=== PATIENT | female | born 1970 | race Two or more races ===

== ENCOUNTER 2016-04-20 09:26 | Emergency (ER) | payer OTHER ==
[2016-04-20 09:42] VITALS: BP 104/77
== END 2016-04-20 10:12 | disposition home or self-care (01) ==
LOC: ER 09:31
DX: J02.9 Acute pharyngitis, unspecified (principal)

== ENCOUNTER 2017-01-25 13:13 | Emergency (ER) | payer OTHER ==
[~2017-01-25] VITALS: Ht 139.7 cm; Wt 40.8 kg
[2017-01-25 14:58] VITALS: BP 103/73
[2017-01-25] MEDS ORDERED: TETANUS-DIPTH-ACEL PERTUSSIS 0.5ML SYRG IM ONE (15:15)
== END 2017-01-25 15:22 | disposition home or self-care (01) ==
LOC: ER 13:13
DX: S01.112A Laceration without foreign body of left eyelid and periocular area, initial encounter (principal); W05.0XXA Fall from non-moving wheelchair, initial encounter; Y93.89 Activity, other specified; Y92.89 Other specified places as the place of occurrence of the external cause; Y99.8 Other external cause status
CPT/HCPCS: 90471; 90715

== ENCOUNTER 2018-04-18 10:23 | Emergency (ER) | payer OTHER ==
[~2018-04-18] VITALS: Ht 139.7 cm; Wt 31.8 kg
[2018-04-18 10:41] VITALS: BP 114/77
[2018-04-18] MEDS ORDERED: ALBUTEROL SULF 2.5 MG/0.5ML(0.5%) NEB SOLN NEB ONE (13:30)
[2018-04-18] MEDS ORDERED: IPRATROPIUM BROM 0.5 MG/2.5ML INH SOL NEB ONE (13:30)
== END 2018-04-18 13:57 | disposition home or self-care (01) ==
LOC: ER 10:23
DX: J02.9 Acute pharyngitis, unspecified (principal)
CPT/HCPCS: 71045; 94640; 99283; J7611; J7644